=== PATIENT | male | born 1975 | race Two or more races ===

== ENCOUNTER 2017-12-23 07:43 | Emergency (ER) | payer SELFPAY ==
[~2017-12-23] VITALS: Ht 172.7 cm; Wt 84.4 kg
--- NOTE | 2017-12-23 07:51 | NUR ---
CHEMICAL BURN TO FACE AND L ARM WITH HOT RADIATOR FLUID 50 MIN SURGICAL DRESSING [employer]KER
[2017-12-23] MEDS ORDERED: ONDANSETRON HCL/PF 4 MG/2 ML VIAL IV ONE (08:00)
[2017-12-23] MEDS ORDERED: TDAP [DIPH/PERTUSSIS/TET] 0.5 ML VIAL IM ONE ×2 (08:00→08:06)
[2017-12-23] MEDS ORDERED: FENTANYL PF 100MCG/2ML AMPUL IV ONE (08:00)
[2017-12-23] MEDS ORDERED: ONDANSETRON HCL/PF 4 MG/2 ML VIAL ONE (08:06)
[2017-12-23] MEDS ORDERED: FENTANYL PF 100MCG/2ML AMPUL ONE (08:06)
[2017-12-23] MEDS ORDERED: GENTAMICIN 0.1% CREAM 15 GM TUBE ONE (08:22)
[2017-12-23] MEDS ORDERED: SILVER SULFADIAZINE CREAM 25 GM TUBE ONE (08:22)
[2017-12-23] MEDS ORDERED: GENTAMICIN 0.1% OINT 15 GM TUBE TP ONE (08:30)
[2017-12-23] MEDS ORDERED: SILVER SULFADIAZINE CREAM 25 GM TUBE TP ONE (08:30)
--- NOTE | 2017-12-23 08:51 | NUR ---
Patient discharged to home in stable condition. Written and verbal after care instructions given. Patient verbalizes understanding of instruction.
--- NOTE | 2017-12-23 08:51 | NUR ---
IV removed. Catheter intact and site benign. Pressure and 4x4 applied to site. No bleeding noted.
[2017-12-23 08:53] VITALS: BP 115/80
== END 2017-12-23 08:53 | disposition home or self-care (01) ==
LOC: ER 07:49
DX: T22.212A Burn of second degree of left forearm, initial encounter (principal); T20.26XA Burn of second degree of forehead and cheek, initial encounter; T20.24XA Burn of second degree of nose (septum), initial encounter; T20.212A Burn of second degree of left ear [any part, except ear drum], initial encounter; T26.02XA Burn of left eyelid and periocular area, initial encounter; R51 Headache; X16.XXXA Contact with hot heating appliances, radiators and pipes, initial encounter; Y93.01 Activity, walking, marching and hiking; Y92.89 Other specified places as the place of occurrence of the external cause; Y99.8 Other external cause status
CPT/HCPCS: 16020; 90471; 90715; 96374; 96375; 99284; A4217; A4606; A6402; J2405; J3010; Z7610